=== PATIENT | female | born 1970 | race Caucasian/White ===

== ENCOUNTER 2017-10-27 10:33 | Inpatient (IN) | payer SELFPAY ==
--- NOTE | 2017-10-27 11:07 | ER Document Report ---
ED Medical Screen (RME) - General Chief Complaint: Headache Stated Complaint: HEADACHE Time Seen by Provider: 10/27/17 11:00 Notes: RAPID MEDICAL EVALUATION DISCLOSURE I have seen this patient as part of a Rapid Medical Evaluation and, if applicable, placed any initially appropriate orders. The patient will be seen and fully evaluated, including a full history and physical exam, by a provider ( in Main ED or Fast Track) when a room becomes available. 47-year-old female PMH migraines once or twice monthly (on propranolol) here with complaints of headache that started 2 hours ago with associated nausea vomiting slightly blurry vision right facial droop right upper/lower extremity numbness/weakness. She states that these neurological deficits are new and she has never gotten them before with her headaches. She took her migraine medication, propranolol, this morning. She does not take any blood thinners. She denies any head trauma. EXAM Very slight right facial droop Right upper extremity 4/5 strength with sensory deficit Right lower extremity 4+/5 strength with sensory deficit TRAVEL OUTSIDE OF THE [place] IN LAST 30 DAYS: No - Related Data Allergies/Adverse Reactions: codeine [Codeine] Allergy (Severe, Verified 10/27/17 10:40) Past Medical History Pulmonary Medical History: Reports: Hx Asthma Neurological Medical History: Reports: Hx Migraine - Immunizations Immunizations up to date: Yes Hx Diphtheria, Pertussis, Tetanus Vaccination: Yes Physical Exam - Vital signs Vitals: Temp Pulse Resp BP Pulse Ox 99.2 F 56 L 16 130/94 H 99 10/27/17 10:49 10/27/17 10:49 10/27/17 10:49 10/27/17 10:49 10/27/17 10:49 Course - Vital Signs Vital signs: Temp Pulse Resp BP Pulse Ox 99.2 F 56 L 16 130/94 H 99 10/27/17 10:49 10/27/17 10:49 10/27/17 10:49 10/27/17 10:49 10/27/17 10:49
--- NOTE | 2017-10-27 11:28 | RADIOLOGY REPORT (SQ) ---
EXAM DESCRIPTION: CT HEAD WITHOUT COMPLETED DATE/TIME: 10/27/2017 11:18 am REASON FOR STUDY: Headadche COMPARISON: None. TECHNIQUE: Axial images acquired through the brain without intravenous contrast. Images reviewed wi th bone, brain and subdural windows. Additional sagittal and coronal reconstructions were generated. Images stored on PACS. All CT scanners at this facility use dose modulation, iterative reconstruction, and/or weight based d osing when appropriate to reduce radiation dose to as low as reasonably achievable (ALARA). [facility]: Dose Right [facility]: CareDose [facility]: Dose Right [facility]: Teradose 4D [facility]: [employer] RADIATION DOSE: 53.1 mGy. LIMITATIONS: None. FINDINGS: VENTRICLES: Normal size and contour. CEREBRUM: No masses. No hemorrhage. No midline shift. No evidence for acute infarction. Normal gra y/white matter differentiation. No areas of low density in the white matter. CEREBELLUM: No masses. No hemorrhage. No alteration of density. No evidence for acute infarction. EXTRAAXIAL SPACES: No fluid collections. No masses. ORBITS AND GLOBE: No intra- or extraconal masses. Normal contour of globe without masses. CALVARIUM: No fracture. PARANASAL SINUSES: No fluid or mucosal thickening. SOFT TISSUES: No mass or hematoma. OTHER: No other significant finding. IMPRESSION: NORMAL BRAIN CT WITHOUT CONTRAST. EVIDENCE OF ACUTE STROKE: NO. COMMENT: Pertinent findings on the imaging study reported as a CRITICAL RESULT to Leighton MORELOS at11:12 on 10/27/2017. Category of Critical Result: CT code stroke Quality ID # [id number]: Final reports with documentation of one or more dose reduction techniques (e.g., Au tomated exposure control, adjustment of the mA and/or kV according to patient size, use of iterative reconstruction technique) TECHNICAL DOCUMENTATION: JOB ID: [id number] [email or web address]- All Rights Reserved Reading location - IP/workstation name: [email or web address]
--- NOTE | 2017-10-27 11:29 | RADIOLOGY REPORT (SQ) ---
EXAM DESCRIPTION: CHEST SINGLE VIEW COMPLETED DATE/TIME: 10/27/2017 11:20 am REASON FOR STUDY: Headadche COMPARISON: None. EXAM PARAMETERS: NUMBER OF VIEWS: One view. TECHNIQUE: Single frontal radiographic view of the chest acquired. RADIATION DOSE: NA LIMITATIONS: None. FINDINGS: LUNGS AND PLEURA: No opacities, masses or pneumothorax. No pleural effusion. MEDIASTINUM AND HILAR STRUCTURES: No masses. Contour normal. HEART AND VASCULAR STRUCTURES: Heart normal in size. Normal vasculature. BONES: No acute findings. HARDWARE: None in the chest. OTHER: No other significant finding. IMPRESSION: NO ACUTE RADIOGRAPHIC FINDING IN THE CHEST. TECHNICAL DOCUMENTATION: JOB ID: [id number] [employer]- All Rights Reserved Reading location - IP/workstation name: [email or web address]
--- NOTE | 2017-10-27 11:34 | ER Document Report ---
ED General - General Chief Complaint: Headache Stated Complaint: HEADACHE Time Seen by Provider: 10/27/17 11:00 Mode of Arrival: Ambulatory Information source: Patient TRAVEL OUTSIDE OF THE [place] IN LAST 30 DAYS: No - HPI Notes: 47-year-old female with a past medical history of migraines which she takes propranolol for presents for complaints of a sudden onset headache with nausea and vomiting, blurred vision, right facial droop with lower extremity numbness and tingling in the right which lasted for about 45 minutes. She reports the symptoms are new is that she has never had numbness or tingling, right facial droop with any of her previous migraines. patient does not follow with a neurologist, she follows with her primary care provider, Katherin Villanueva [facility]. Patient states she was helping for the clients food in the fridge when the symptoms started. Patient does not smoke, denies drinking. Has not taken a baby aspirin. Denies any recent illnesses or fevers. Denies any trauma. Patient states she usually keeps her migraines under control with her daily medication. Patient did take her propranolol this morning. Denies fevers, chills, chest pain,palpitations, shortness of breath, dyspnea, nausea, vomiting, diarrhea, abdominal pain, hematuria, speech changes, LH, dizziness, syncope, headaches, wheezing, ST, URI, neck pain, weakness, bowel or bladder dysfunction, saddle anesthesia, numbness or tingling in bilateral upper or lower extremities equally, muscle paralysis, weakness in bilateral upper or lower extremities equally or rash. Denies IV drug use. - Related Data Allergies/Adverse Reactions: codeine [Codeine] Allergy (Severe, Verified 10/27/17 10:40) Past Medical History - General Information source: Patient - Social History Smoking Status: Never Smoker Family History: Reviewed & Not Pertinent Patient has suicidal ideation: No Patient has homicidal ideation: No Pulmonary Medical History: Reports: Hx Asthma Neurological Medical History: Reports: Hx Migraine Renal/ Medical History: Denies: Hx Peritoneal Dialysis - Immunizations Immunizations up to date: Yes Hx Diphtheria, Pertussis, Tetanus Vaccination: Yes Review of Systems - Review of Systems Constitutional: See HPI EENT: No symptoms reported Cardiovascular: No symptoms reported Respiratory: No symptoms reported Gastrointestinal: No symptoms reported Genitourinary: No symptoms reported Female Genitourinary: No symptoms reported Musculoskeletal: No symptoms reported Skin: No symptoms reported Hematologic/Lymphatic: No symptoms reported Neurological/Psychological: See HPI Physical Exam - Vital signs Vitals: Temp Pulse Resp BP Pulse Ox 99.2 F 56 L 16 130/94 H 99 10/27/17 10:49 10/27/17 10:49 10/27/17 10:49 10/27/17 10:49 10/27/17 10:49 - Notes Notes: PHYSICAL EXAMINATION: GENERAL: Well-appearing, well-nourished and in no acute distress. HEAD: Atraumatic, normocephalic. EYES: Pupils equal round and reactive to light, extraocular movements intact, conjunctiva are normal. ENT: Nares patent, oropharynx clear without exudates. Moist mucous membranes. NECK: Normal range of motion, supple without lymphadenopathy LUNGS: Breath sounds clear to auscultation bilaterally and equal. No wheezes rales or rhonchi. HEART: Regular rate and rhythm without murmurs ABDOMEN: Soft, nontender, nondistended abdomen. No guarding, no rebound. No masses appreciated. Female : deferred Musculoskeletal: Normal range of motion, no pitting or edema. No cyanosis. NEUROLOGICAL: Cranial nerves grossly intact. Normal speech, normal gait. Normal sensory, motor exams. PERRLA, EOMI. Full motor and sensory function throughout. Seamless Tube Drawer left greater than right in bilateral upper extremities. right 4/ 5 with strength, left 5/ 5 strength in bilateral upper extremities. tongue midline. No pronator drift. No ataxia. Neck with APROM. Raises eyebrows. Strength is 5 out of 5 in bilateral upper and lower extremities equally.Speaks in full sentences. No weakness on one side. Romberg gait steady able to walk straight line. Able to recall 5 objects. PSYCH: Normal mood, normal affect. SKIN: Warm, Dry, normal turgor, no rashes or lesions noted. Course - Re-evaluation Re-evalutation: 10/27/17 12:49 47-year-old female who is afebrile, vitals stable and in no distress presents for sudden onset of right-sided numbness and tingling with associated blurred vision, nausea and vomiting with the sudden headache approximately 2 hours ago, states symptoms resolved about [address] of head negative for any acute anterior cerebral abnormalities such as stroke, mass or lesion, cerebral swelling, etc. Chest x-ray negative for any acute findings. CBC negative for any leukocytosis or anemia. Coagulation studies normal. CMP negative besides slight hypernatremia this is likely due to dehydration. Cardiac enzymes unremarkable. EKG shows sinus bradycardia. On examination patient has right sided weakness in bilateral upper and lower extremities, she states this is a new symptom that she has never had this before. Denies history of heart attack , stroke or diabetes. States father in a car accident, did not know his medical history. Patient does not know her mother's history. Patient denies any cardiac history. Does not take daily baby aspirin. Patient affirms she is not having any chest pain or shortness of breath. Start migraine cocktail as well as pursue a MRI of the brain. Urinalysis shows patient has a UTI, will treat with Macrobid. MRI brain negative for any acute findings. On reevaluation patient still is having right-sided weakness. Clinical findings, pertinent laboratory and diagnostic findings discussed with Dr. Sharp, will keep patient for observation due to having a TIA at 1630. All questions and concerns answered by this provider with patient and family. - Vital Signs Vital signs: Temp Pulse Resp BP Pulse Ox 99.2 F 57 L 18 130/94 H 99 10/27/17 10:49 10/27/17 11:53 10/27/17 11:53 10/27/17 11:53 10/27/17 11:54 - Laboratory Result Diagrams: 10/27/17 11:25 10/27/17 11:25 Laboratory results interpreted by co: 10/27/17 10/27/17 11:25 12:30 Sodium 145.2 H Neonat Total Bilirubin 0.0 L Urine Blood LARGE H Ur Leukocyte Esterase MODERATE H - EKG Interpretation by Wy EKG shows normal: Sinus rhythm Rate: Bradycardia - Nonspecific ST segment changes, no STEMI. Heart rate 58 bpm. Discharge - Discharge Clinical Impression: UTI (urinary tract infection) Qualifiers: Urinary tract infection type: acute cystitis Hematuria presence: with hematuria Qualified Code(s): N30.01 - Acute cystitis with hematuria TIA (transient ischemic attack) Qualifiers: Transient cerebral ischemia type: unspecified Qualified Code(s): G45.9 - Transient cerebral ischemic attack, unspecified Condition: Good Disposition: ADMITTED OBSERVATION Admitting Provider: Hospitalist - Dr. Price sharp Unit Admitted: Medical Floor
[2017-10-27 11:41] LABS: ABSOLUTE BASOPHILS # (AUTO) 0.1 10^3/uL (0.0-0.2); ABSOLUTE EOSINOPHILS # (AUTO) 0.4 10^3/uL (0.0-0.6); ABSOLUTE MONOCYTES (AUTO) 0.6 10^3/uL (0.1-1.4); ABSOLUTE NEUT (AUTO) 4.2 10^3/uL (1.7-8.2); HEMATOCRIT 37.9 % (36.0-47.0); HEMOGLOBIN 12.8 g/dL (12.0-15.5); LYMPHOCYTES % (AUTO) 27.3 % (13-45); MEAN CORPUSCULAR HEMOGLOBIN 29.6 pg (27.0-33.4); MEAN CORPUSCULAR HGB CONC 33.9 g/dL (32.0-36.0); MEAN CORPUSCULAR VOLUME 87 fl (80-97); MONOCYTES % (AUTO) 8.2 % (3-13); PLATELET COUNT 336 10^3/uL (150-450); RED BLOOD COUNT 4.35 10^6/uL (3.72-5.28); SEGMENTED NEUTROPHILS % (AUTO) 58.5 % (42-78); TOTAL CELLS COUNTED % (AUTO) 100 %; WHITE BLOOD COUNT 7.2 10^3/uL (4.0-10.5)
[2017-10-27 11:45] LABS: INTERNATIONAL RATION (INR) 0.92; PROTHROMBIN TIME 12.8 SEC (11.4-15.4)
[2017-10-27 11:46] LABS: PARTIAL THROMBOPLASTIN TIME 34.1 SEC (23.5-35.8)
[2017-10-27 11:59] LABS: ALANINE AMINOTRANSFERASE 30 U/L (9-52); ALBUMIN 4.4 g/dL (3.5-5.0); ALKALINE PHOSPHATASE 62 U/L (38-126); ANION GAP 14 (5-19); ASPARTATE AMINO TRANSFERASE 18 U/L (14-36); BILIRUBIN,DIRECT 0.2 mg/dL (0.0-0.4); BILIRUBIN,TOTAL 0.2 mg/dL (0.2-1.3); BLOOD UREA NITROGEN 8 mg/dL (7-20); CALCIUM 9.8 mg/dL (8.4-10.2); CARBON DIOXIDE 26 mmol/L (22-30); CHLORIDE 105 mmol/L (98-107); CREATINE KINASE 44 U/L (30-135); GLUCOSE 85 mg/dL (75-110); POTASSIUM 4.1 mmol/L (3.6-5.0); SODIUM 145.2 mmol/L (137-145); TOTAL PROTEIN 7.5 g/dL (6.3-8.2)
[2017-10-27 12:12] LABS: CREATINE KINASE MB < 0.22 ng/mL (<4.55); TROPONIN I < 0.012 ng/mL
[2017-10-27] MEDS ORDERED: ASPIRIN 81 MG TABLET, CHEWABLE PO ONE (12:43)
[2017-10-27] MEDS ORDERED: NORMAL SALINE 1000 ML 1,000 ML IV ONE (12:43)
[2017-10-27] MEDS ORDERED: KETOROLAC TROMETHAMINE INJ/PF 30 MG/1 ML SDV IV ONE (12:44)
[2017-10-27] MEDS ORDERED: PROCHLORPERAZINE EDISYLATE INJ 10 MG/2 ML VIAL IV ONE (12:44)
--- NOTE | 2017-10-27 13:21 | EKG REPORT ---
SEVERITY:- NORMAL ECG - SINUS RHYTHM : Confirmed by: Thang Arroyo MD 27-Oct-2017 13:21:08
[2017-10-27 13:50] LABS: APPEARANCE,URINE SLIGHTLY-CLOUDY; BILIRUBIN,URINE NEGATIVE (NEGATIVE); COLOR,URINE YELLOW; GLUCOSE, URINE NEGATIVE (NEGATIVE); KETONES,URINE NEGATIVE (NEGATIVE); LEUKOCYTE ESTERASE,URINE MODERATE (NEGATIVE); NITRITE,URINE NEGATIVE (NEGATIVE); PROTEIN,URINE NEGATIVE (NEGATIVE); URINE SPECIFIC GRAVITY 1.005; UROBILINOGEN,URINE NEGATIVE mg/dL (<2.0)
[2017-10-27] MEDS ORDERED: NITROFURANTOIN MONOHYD/M-CRYST 100 MG CAPSULE PO ONE (14:03)
--- NOTE | 2017-10-27 16:08 | RADIOLOGY REPORT (SQ) ---
EXAM DESCRIPTION: MRI HEAD WITHOUT COMPLETED DATE/TIME: 10/27/2017 3:52 pm REASON FOR STUDY: sudden onset n/t on right w/ AGUILERA. +weakness COMPARISON: CT brain 10/28/2017 TECHNIQUE: Multiplanar imaging includes non-contrasted T1, T2, FLAIR, and diffusion with ADC map seq uences. Images stored on PACS. LIMITATIONS: None. FINDINGS: ANATOMY: No developmental anomalies. Normal vascular flow voids. Pituitary fossa normal. CSF SPACES: Normal in size and contour. No hemorrhage. CEREBRUM: Sulci and gyri normal in size and contour. Normal white matter signal on FLAIR imaging. No evidence of hemorrhage, mass, or extraaxial fluid collection. POSTERIOR FOSSA: No signal alteration. No hemorrhage. No edema, masses or mass effect. Internal ashly tory canals, cerebello-pontine angles, mastoids normal. DIFFUSION IMAGING: Negative for acute or sub-acute infarction. ORBITS: No masses. Globes normal. PARANASAL SINUSES: No fluid levels. Mucosa normal. OTHER: No other significant finding. IMPRESSION: Unremarkable study EVIDENCE OF ACUTE STROKE: NO. TECHNICAL DOCUMENTATION: JOB ID: [id number] [employer]- All Rights Reserved Reading location - IP/workstation name: [email or web address]
[2017-10-27] MEDS ORDERED: NORMAL SALINE 1000 ML 1,000 ML IV PRN (17:34)
[2017-10-27] MEDS ORDERED: ONDANSETRON HCL INJ/PF 4 MG/2 ML SDV IV PRN (17:39)
[2017-10-27] MEDS ORDERED: ZOLPIDEM TARTRATE 5 MG TABLET PO PRN (17:39)
--- NOTE | 2017-10-27 18:07 | PDOC H&P ---
History of Present Illness Admission Date/PCP: 10/27/17 16:41 Patient complains of: Right sided numbness and tingling History of Present Illness: ERIC ARDON is a 47 year old female Past Medical History Pulmonary Medical History: Reports: Asthma Neurological Medical History: Reports: Migraine Social History Information Source: Patient Smoking Status: Never Smoker Frequency of Alcohol Use: None Drugs: None Hx Prescription Drug Abuse: No - Advance Directive Resuscitation Status: Full Code Family History Family History: Reviewed & Not Pertinent Parental Family History Reviewed: Yes - Cancer, HTN Children Family History Reviewed: NA Sibling(s) Family History Reviewed.: Unknown Medication/Allergy Allergies/Adverse Reactions: codeine [Codeine] Allergy (Severe, Verified 10/27/17 10:40) Review of Systems All systems: reviewed and no additional remarkable complaints except as stated Physical Exam Vital Signs: Temp Pulse Resp BP Pulse Ox 99.2 F 57 L 18 130/94 H 99 10/27/17 10:49 10/27/17 11:53 10/27/17 11:53 10/27/17 11:53 10/27/17 11:54 General appearance: PRESENT: no acute distress, well-developed, well-nourished Head exam: PRESENT: atraumatic, normocephalic Ear exam: PRESENT: normal external ear exam Mouth exam: PRESENT: dry mucosa Neck exam: ABSENT: carotid bruit, JVD, lymphadenopathy, thyromegaly Respiratory exam: PRESENT: clear to auscultation baldo. ABSENT: rales, rhonchi, wheezes Cardiovascular exam: PRESENT: RRR. ABSENT: diastolic murmur, rubs, systolic murmur GI/Abdominal exam: PRESENT: normal bowel sounds, soft. ABSENT: distended, guarding, mass, organolmegaly, rebound, tenderness Rectal exam: PRESENT: deferred Extremities exam: PRESENT: full ROM. ABSENT: calf tenderness, clubbing, pedal edema Musculoskeletal exam: PRESENT: ambulatory Neurological exam: PRESENT: alert, awake, oriented to person, oriented to place , oriented to time, oriented to situation, motor sensory deficit - RUE, other - strength 3/5 RUE Skin exam: PRESENT: dry, intact, warm. ABSENT: cyanosis, rash Results Laboratory Results: Laboratory 10/27/17 10/27/17 10/27/17 11:25 11:25 11:25 WBC 7.2 RBC 4.35 Hgb 12.8 Hct 37.9 MCV 87 MCH 29.6 MCHC 33.9 RDW 14.0 Plt Count 336 Seg Neutrophils % 58.5 Lymphocytes % 27.3 Monocytes % 8.2 Eosinophils % 5.0 Basophils % 1.0 Absolute Neutrophils 4.2 Absolute Lymphocytes 2.0 Absolute Monocytes 0.6 Absolute Eosinophils 0.4 Absolute Basophils 0.1 PT 12.8 INR 0.92 APTT 34.1 Sodium 145.2 H Potassium 4.1 Chloride 105 Carbon Dioxide 26 Anion Gap 14 BUN 8 Creatinine 0.55 Est GFR ( Amer) > 60 Est GFR (Non-Af Amer) > 60 Glucose 85 Calcium 9.8 Total Bilirubin 0.2 Direct Bilirubin 0.2 Neonat Total Bilirubin 0.0 L Neonat Direct Bilirubin 0.0 Neonat Indirect Bili 0.0 AST 18 ALT 30 Alkaline Phosphatase 62 Creatine Kinase 44 CK-MB (CK-2) Troponin I Total Protein 7.5 Albumin 4.4 Urine Color Urine Appearance Urine pH Ur Specific [place] Urine Protein Urine Glucose (UA) Urine Ketones Urine Blood Urine Nitrite Urine Bilirubin Urine Urobilinogen Ur Leukocyte Esterase Urine WBC (Auto) Urine RBC (Auto) Urine Bacteria (Auto) Squamous Epi Cells Auto Urine Mucus (Auto) Urine Ascorbic Acid 10/27/17 10/27/17 11:25 12:30 WBC RBC Hgb Hct MCV MCH MCHC RDW Plt Count Seg Neutrophils % Lymphocytes % Monocytes % Eosinophils % Basophils % Absolute Neutrophils Absolute Lymphocytes Absolute Monocytes Absolute Eosinophils Absolute Basophils PT INR APTT Sodium Potassium Chloride Carbon Dioxide Anion Gap BUN Creatinine Est GFR ( Amer) Est GFR (Non-Af Amer) Glucose Calcium Total Bilirubin Direct Bilirubin Neonat Total Bilirubin Neonat Direct Bilirubin Neonat Indirect Bili AST ALT Alkaline Phosphatase Creatine Kinase CK-MB (CK-2) < 0.22 Troponin I < 0.012 Total Protein Albumin Urine Color YELLOW Urine Appearance SLIGHTLY-CLOUDY Urine pH 6.0 Ur Specific [place] 1.005 Urine Protein NEGATIVE Urine Glucose (UA) NEGATIVE Urine Ketones NEGATIVE Urine Blood LARGE H Urine Nitrite NEGATIVE Urine Bilirubin NEGATIVE Urine Urobilinogen NEGATIVE Ur Leukocyte Esterase MODERATE H Urine WBC (Auto) 28 Urine RBC (Auto) 5 Urine Bacteria (Auto) TRACE Squamous Epi Cells Auto 5 Urine Mucus (Auto) RARE Urine Ascorbic Acid NEGATIVE Impressions: Chest X-Ray 10/27/17 11:07 IMPRESSION: NO ACUTE RADIOGRAPHIC FINDING IN THE CHEST. Head CT 10/27/17 11:07 IMPRESSION: NORMAL BRAIN CT WITHOUT CONTRAST. EVIDENCE OF ACUTE STROKE: NO. Head MRI 10/27/17 12:40 IMPRESSION: Unremarkable study EVIDENCE OF ACUTE STROKE: NO. Assessment & Plan - Diagnosis (1) TIA (transient ischemic attack) Qualifiers: Transient cerebral ischemia type: unspecified Qualified Code(s): G45.9 - Transient cerebral ischemic attack, unspecified Is this a current diagnosis for this admission?: Yes Plan: Obtain Echo, and carotid doppler studies (2) UTI (urinary tract infection) Qualifiers: Urinary tract infection type: acute cystitis Hematuria presence: with hematuria Qualified Code(s): N30.01 - Acute cystitis with hematuria Is this a current diagnosis for this admission?: Yes Plan: Will continue Macrobid - Time Time Spent: 30 to 50 Minutes Medications reviewed and adjusted accordingly: Yes Anticipated discharge: Home Within: within 24 hours - Inpatient Certification Based on my medical assessment, after consideration of the patient's comorbidities, presenting symptoms, or acuity I expect that the services needed warrant INPATIENT care.: Yes Medical Necessity: Need Close Monitoring Due to Risk of Patient Decompensation, Risk of Complication if Not Cared For in Hospital
[2017-10-27] MEDS ORDERED: ENOXAPARIN SODIUM INJ 40 MG/0.4 ML DISP.SYRIN SUBCUT ONE (19:00)
[2017-10-27] MEDS: NITROFURANTOIN MONOHYD/M-CRYST 100 MG CAPSULE PO SCH (20:44)
[2017-10-28] MEDS: NITROFURANTOIN MONOHYD/M-CRYST 100 MG CAPSULE PO SCH ×2 (09:21→17:05)
[2017-10-28] MEDS ORDERED: ENOXAPARIN SODIUM INJ 40 MG/0.4 ML DISP.SYRIN SUBCUT SCH ×2 (10:00)
[2017-10-28] MEDS ORDERED: ASPIRIN 81 MG TABLET, ENT COATED PO SCH (10:00)
[2017-10-28] MEDS ORDERED: ASPIRIN 325 MG TABLET, ENT COATED PO SCH (10:00)
[2017-10-28] MEDS: ACETAMINOPHEN 325 MG TABLET PO PRN ×2 (12:24→17:05)
--- NOTE | 2017-10-28 14:03 | RADIOLOGY REPORT (SQ) ---
EXAM DESCRIPTION: CAROTID DOPPLER COMPLETED DATE/TIME: 10/28/2017 1:10 pm REASON FOR STUDY: TIA COMPARISON: None. TECHNIQUE: Grayscale ultrasound, Doppler velocity and spectra, and color Doppler images acquired of the extra-cranial carotid and vertebral arteries. Images stored on PACS. LIMITATIONS: None. FINDINGS: RIGHT CAROTID CCA Velocities: Within normal limits. ICA Velocities Peak systolic 0.73 m/s. End diastolic 0.32 m/s. Proximal ICA/CCA peak systolic ratio 1.6. Spectra normal. No significant plaque. LEFT CAROTID CCA Velocities: Within normal limits. ICA Velocities Peak systolic 0.76 m/s. End diastolic 0.27 m/s. Proximal ICA/CCA peak systolic ratio 1.6. Spectra normal. No significant plaque. VERTEBRAL ARTERIES: Antegrade flow. Normal waveforms. SUBCLAVIAN ARTERIES: Not imaged. OTHER: No other significant finding. IMPRESSION: NO HEMODYNAMICALLY SIGNIFICANT STENOSIS. COMMENT: Quality ID #[id number]: Velocity criteria are extrapolated from the diameter data as defined by t he Society of Radiologists in Ultrasound Consensus Conference. Radiology 2003: 229; 340-346. TECHNICAL DOCUMENTATION: JOB ID: [id number] [employer]- All Rights Reserved Reading location - IP/workstation name: [email or web address]
--- NOTE | 2017-10-28 16:21 | PDOC DISCHARGE SUMMARY ---
General - Admit/Disc Date/PCP Admission Date/Primary Care Provider: 10/27/17 16:41 Discharge Date: 10/28/17 - Discharge Diagnosis (1) TIA (transient ischemic attack) Is this a current diagnosis for this admission?: Yes (2) UTI (urinary tract infection) Is this a current diagnosis for this admission?: Yes - Additional Information Resuscitation Status: Full Code Discharge Diet: Regular Discharge Activity: Activity As Tolerated Prescriptions: Nitrofurantoin Monohyd/M-Cryst [Macrobid 100 mg Capsule] 100 mg PO BID #10 capsule Home Medications: Propranolol HCl [Inderal 20 mg Tablet] 20 mg PO Q12 10/27/17 Aspirin [Ecotrin 81 mg EC Tablet] 81 mg PO DAILY tabec 10/28/17 Nitrofurantoin Monohyd/M-Cryst [Macrobid 100 mg Capsule] 100 mg PO BID #10 capsule 10/28/17 History of Present Illness History of Present Illness: ERIC ARDON is a 47 year old female This patient presents with sudden onset of right-sided numbness and tingling restarted to about 9 AM which was at work today. She was noted to have some mild facial droop while in the emergency room. She also complained of nausea vomiting as well as a sudden headache and blurred vision. The had a CT scan of the brain as well as MRI done in the emergency room with no significant findings. She gives a prior history of migraine headaches but otherwise denies any other significant medical history. She denies any such prior symptoms before. She is has been evaluated and monitored in the emergency room over the last few hours with no progression of symptoms and without resolution of some of her above-mentioned symptoms. State that the symptoms is different from her migraine headaches Hospital Course Hospital Course: Patient admitted with complaints of numbness and tingling. It is unclear what the etiology of this were. She had a full workup done including CT scan of the brain as well as MRI and how to Doppler studies which were all negative for evidence of acute stroke. A two-dimensional echocardiogram result was reviewed with Dr. Perry with no significant findings however will have patient follow up with him in 2 weeks to r/o occult cardiac etiologies.. Patient was monitored on telemetry floor with no progression of symptoms and in fact by this morning all her subjective symptoms were a resolved. Her blood pressure was controlled throughout her hospital stay. She does have a history of migraine and it is possible that this is a variant of a migraine headache. Physical Exam Vital Signs: Temp Pulse Resp BP Pulse Ox 98.4 F 74 18 117/76 100 10/28/17 11:36 10/28/17 11:36 10/28/17 11:36 10/28/17 11:36 10/28/17 11:36 Intake & Output 10/27/17 10/28/17 10/29/17 06:59 06:59 06:59 Intake Total 885 200 Balance 885 200 Weight 70.7 kg General appearance: PRESENT: no acute distress, well-developed, well-nourished Head exam: PRESENT: atraumatic, normocephalic Eye exam: PRESENT: conjunctiva pink, EOMI, PERRLA. ABSENT: scleral icterus Ear exam: PRESENT: normal external ear exam Mouth exam: PRESENT: moist, tongue midline Neck exam: ABSENT: carotid bruit, JVD, lymphadenopathy, thyromegaly Respiratory exam: PRESENT: clear to auscultation baldo. ABSENT: rales, rhonchi, wheezes Cardiovascular exam: PRESENT: RRR. ABSENT: diastolic murmur, rubs, systolic murmur Pulses: PRESENT: normal dorsalis pedis pul Vascular exam: PRESENT: normal capillary refill GI/Abdominal exam: PRESENT: normal bowel sounds, soft. ABSENT: distended, guarding, mass, organolmegaly, rebound, tenderness Rectal exam: PRESENT: deferred Extremities exam: PRESENT: full ROM. ABSENT: calf tenderness, clubbing, pedal edema Neurological exam: PRESENT: alert, awake, oriented to person, oriented to place , oriented to time, oriented to situation, CN II-XII grossly intact. ABSENT: motor sensory deficit Psychiatric exam: PRESENT: appropriate affect, normal mood. ABSENT: homicidal ideation, suicidal ideation Skin exam: PRESENT: dry, intact, warm. ABSENT: cyanosis, rash Results Laboratory Results: Laboratory WBC 7.2 10^3/uL (4.0-10.5) 10/27/17 11:25 RBC 4.35 10^6/uL (3.72-5.28) 10/27/17 11:25 Hgb 12.8 g/dL (12.0-15.5) 10/27/17 11:25 Hct 37.9 % (36.0-47.0) 10/27/17 11:25 MCV 87 fl (80-97) 10/27/17 11:25 MCH 29.6 pg (27.0-33.4) 10/27/17 11:25 MCHC 33.9 g/dL (32.0-36.0) 10/27/17 11:25 RDW 14.0 % (11.5-14.0) 10/27/17 11:25 Plt Count 336 10^3/uL (150-450) 10/27/17 11:25 Seg Neutrophils % 58.5 % (42-78) 10/27/17 11:25 Lymphocytes % 27.3 % (13-45) 10/27/17 11:25 Monocytes % 8.2 % (3-13) 10/27/17 11:25 Eosinophils % 5.0 % (0-6) 10/27/17 11:25 Basophils % 1.0 % (0-2) 10/27/17 11:25 Absolute Neutrophils 4.2 10^3/uL (1.7-8.2) 10/27/17 11:25 Absolute Lymphocytes 2.0 10^3/uL (0.5-4.7) 10/27/17 11:25 Absolute Monocytes 0.6 10^3/uL (0.1-1.4) 10/27/17 11:25 Absolute Eosinophils 0.4 10^3/uL (0.0-0.6) 10/27/17 11:25 Absolute Basophils 0.1 10^3/uL (0.0-0.2) 10/27/17 11:25 Sodium 145.2 mmol/L (137-145) H 10/27/17 11:25 Potassium 4.1 mmol/L (3.6-5.0) 10/27/17 11:25 Chloride 105 mmol/L (98-107) 10/27/17 11:25 Carbon Dioxide 26 mmol/L (22-30) 10/27/17 11:25 Anion Gap 14 (5-19) 10/27/17 11:25 BUN 8 mg/dL (7-20) 10/27/17 11:25 Creatinine 0.55 mg/dL (0.52-1.25) 10/27/17 11:25 Est GFR ( Amer) > 60 (>60) 10/27/17 11:25 Est GFR (Non-Af Amer) > 60 (>60) 10/27/17 11:25 Glucose 85 mg/dL (75-110) 10/27/17 11:25 Calcium 9.8 mg/dL (8.4-10.2) 10/27/17 11:25 Total Bilirubin 0.2 mg/dL (0.2-1.3) 10/27/17 11:25 Direct Bilirubin 0.2 mg/dL (0.0-0.4) 10/27/17 11:25 Neonat Total Bilirubin 0.0 mg/dL (0.1-1.1) L 10/27/17 11:25 Neonat Direct Bilirubin 0.0 mg/dL (0.0-0.3) 10/27/17 11:25 Neonat Indirect Bili 0.0 mg/dL (0.0-1.1) 10/27/17 11:25 AST 18 U/L (14-36) 10/27/17 11:25 ALT 30 U/L (9-52) 10/27/17 11:25 Alkaline Phosphatase 62 U/L (38-126) 10/27/17 11:25 Creatine Kinase 44 U/L (30-135) 10/27/17 11:25 CK-MB (CK-2) < 0.22 ng/mL (<4.55) 10/27/17 11:25 Troponin I < 0.012 ng/mL 10/27/17 11:25 Total Protein 7.5 g/dL (6.3-8.2) 10/27/17 11:25 Albumin 4.4 g/dL (3.5-5.0) 10/27/17 11:25 Urine Color YELLOW 10/27/17 12:30 Urine Appearance SLIGHTLY-CLOUDY 10/27/17 12:30 Urine pH 6.0 (5.0-9.0) 10/27/17 12:30 Ur Specific [place] 1.005 10/27/17 12:30 Urine Protein NEGATIVE mg/dL (NEGATIVE) 10/27/17 12:30 Urine Glucose (UA) NEGATIVE mg/dL (NEGATIVE) 10/27/17 12:30 Urine Ketones NEGATIVE mg/dL (NEGATIVE) 10/27/17 12:30 Urine Blood LARGE (NEGATIVE) H 10/27/17 12:30 Urine Nitrite NEGATIVE (NEGATIVE) 10/27/17 12:30 Urine Bilirubin NEGATIVE (NEGATIVE) 10/27/17 12:30 Urine Urobilinogen NEGATIVE mg/dL (<2.0) 10/27/17 12:30 Ur Leukocyte Esterase MODERATE (NEGATIVE) H 10/27/17 12:30 Urine WBC (Auto) 28 /HPF 10/27/17 12:30 Urine RBC (Auto) 5 /HPF 10/27/17 12:30 Urine Bacteria (Auto) TRACE /HPF 10/27/17 12:30 Squamous Epi Cells Auto 5 /HPF 10/27/17 12:30 Urine Mucus (Auto) RARE /LPF 10/27/17 12:30 Urine Ascorbic Acid NEGATIVE (NEGATIVE) 10/27/17 12:30 Impressions: Chest X-Ray 10/27/17 11:07 IMPRESSION: NO ACUTE RADIOGRAPHIC FINDING IN THE CHEST. Head CT 10/27/17 11:07 IMPRESSION: NORMAL BRAIN CT WITHOUT CONTRAST. EVIDENCE OF ACUTE STROKE: NO. Head MRI 10/27/17 12:40 IMPRESSION: Unremarkable study EVIDENCE OF ACUTE STROKE: NO. Carotid Doppler Study 10/28/17 00:00 IMPRESSION: NO HEMODYNAMICALLY SIGNIFICANT STENOSIS. Qualifiers - * PATIENT BEING DISCHARGED WITH ANY OF THE FOLLOWING DIAGNOSIS: No Plan Time Spent: Less than 30 Minutes
[2017-10-28 17:16] VITALS: BP 131/76
--- NOTE | 2017-10-28 17:16 | XCELERA REPORT ---
[address] [address] Transthoracic Echocardiogram Report Name: ERIC ARDON Age: 47 yrs Gender: Female : 1970 Patient Status: Inpatient Patient Location: [address] [place] [address] Study Date: 10/28/2017 09:18 AM Height: 59 in Weight: 154 lb BSA: 1.7 m2 Procedure: A complete two-dimensional transthoracic echocardiogram was performed (2D, M-mode, spectral and color flow Doppler). The study was technically adequate with some images being suboptimal in quality. Reason For Study: ?TIA Ordering Physician: MARU SUE Performed By: Mahnaz Condon Interpretation Summary The left ventricular ejection fraction is within normal limits. There is borderline concentric left ventricular hypertrophy. The left ventricle is grossly normal size. Doppler measurements suggest impaired left ventricular relaxation, which is associated with grade I/IV or mild diastolic dysfunction Wall motion cannot be accurately commented on, but no definite regional wall motion abnormalities noted. The right ventricular systolic function is normal. There is no mitral valve stenosis. There is a trace amount of mitral regurgitation There is no aortic valve stenosis No aortic regurgitation is present. There is no tricuspid stenosis. There is a trace or physiologic amount of tricuspid regurgitation The aortic root is not well visualized but is probably normal size. The inferior vena cava appeared normal and decreased > 50% with respiration (RAP 5-10 mmHg) There is no pericardial effusion. MMode/2D Measurements & Calculations RVDd: 2.3 cm LVIDd: 4.0 cm FS: 41.0 % Ao root diam: 2.2 cm IVSd: 1.00 cm LVIDs: 2.4 cm EDV(Teich): 70.3 ml LVPWd: 0.99 cm ESV(Teich): 19.5 ml Ao root area: 4.0 cm2 EF(Teich): 72.3 % Doppler Measurements & Calculations MV E max snow: MV dec slope: Ao V2 max: LV V1 max P.2 cm/sec 165.9 cm/sec 5.4 mmHg MV A max snow: 324.2 cm/sec2 Ao max PG: LV V1 max: 59.8 cm/sec MV dec time: 11.0 mmHg 115.7 cm/sec MV E/A: 1.3 0.25 sec PA V2 max: PI end-d snow: TR max snow: 106.9 cm/sec 87.4 cm/sec 132.5 cm/sec PA max PG: TR max P.6 mmHg 7.0 mmHg Left Ventricle The left ventricle is grossly normal size. There is borderline concentric left ventricular hypertrophy. The left ventricular ejection fraction is within normal limits. Doppler measurements suggest impaired left ventricular relaxation, which is associated with grade I/IV or mild diastolic dysfunction. Wall motion cannot be accurately commented on, but no definite regional wall motion abnormalities noted. Right Ventricle The right ventricle is grossly normal size. There is normal right ventricular wall thickness. The right ventricular systolic function is normal. Atria The right atrium is normal in size. The left atrium is borderline dilated. Interarterial septum not well visualized and not well dopplered. Cannot comment on ASD/PFO presence. Mitral Valve The mitral valve leaflets are sclerotic, but show no functional abnormalities. There is no mitral valve stenosis. There is a trace amount of mitral regurgitation. Aortic Valve The aortic valve is grossly normal. There is no aortic valve stenosis. No aortic regurgitation is present. Tricuspid Valve The tricuspid valve is not well visualized, but is grossly normal. There is no tricuspid stenosis. There is a trace or physiologic amount of tricuspid regurgitation. Pulmonic Valve The pulmonic valve is not well visualized. Great Vessels The aortic root is not well visualized but is probably normal size. The inferior vena cava appeared normal and decreased > 50% with respiration (RAP 5-10 mmHg). Effusions There is no pericardial effusion. Incidental Findings No definite cardiac source of CVA/TIA noted on this particular trans- thoracic study. Consider FARZANA if clinically indicated. May consider mobile cardiac telemetry monitoring (MCT) for ruling out transient AFIB. : MARU SUE > Gerson Perry
== END 2017-10-28 17:42 | disposition home or self-care (01) | DRG 69 ==
LOC: ER 10:33 → EH 16:41 → OBSVTOIN 16:41 → 3S 21:17
PROVIDERS: ADMIT Internal Medicine; ATTEND Internal Medicine
DX: G45.9 Transient cerebral ischemic attack, unspecified (principal); N30.01 Acute cystitis with hematuria; R20.0 Anesthesia of skin; H53.8 Other visual disturbances; G43.809 Other migraine, not intractable, without status migrainosus; R29.810 Facial weakness; J45.909 Unspecified asthma, uncomplicated; Z88.6 Allergy status to analgesic agent; Z80.9 Family history of malignant neoplasm, unspecified; Z82.49 Family history of ischemic heart disease and other diseases of the circulatory system
CPT/HCPCS: 36415; 70450; 70551; 71045; 80053; 81001; 82550; 82553; 84484; 85025; 85610; 85730; 87086; 93005; 93010; 93306; 93880; 96361; 96374; 96375; 99285; J0780; J1650; J1885; J7030; J8499

== ENCOUNTER 2018-07-11 09:04 | Emergency (ER) | payer SELFPAY ==
[2018-07-11 09:21] VITALS: BP 139/85
[2018-07-11] MEDS ORDERED: HYDROCODONE/ACETAMINOPHEN 5-325 MG TABLET PO ONE (09:50)
[2018-07-11] MEDS ORDERED: PENICILLIN V POTASSIUM 500 MG TABLET PO ONE (09:50)
[2018-07-11] MEDS ORDERED: IBUPROFEN 800 MG TABLET PO ONE (09:50)
--- NOTE | 2018-07-11 09:52 | ER Document Report ---
HPI - HPI Patient complains to provider of: Dental pain Time Seen by Provider: 07/11/18 09:43 Onset/Duration: Persistent Quality of pain: Achy Pain Level: 5 Context: Patient complains of dental pain to right lower jaw for the past 2 weeks. Patient denies any facial swelling or fever. Associated Symptoms: denies: Fever Exacerbated by: Denies Relieved by: Denies Similar symptoms previously: Yes Recently seen / treated by doctor: No - ROS ROS below otherwise negative: Yes Systems Reviewed and Negative: Yes All other systems reviewed and negative - CONSTITUTIONAL Constitutional: DENIES: Fever, Chills - EENT Notes: Dental pain - RESPIRATORY Respiratory: DENIES: Trouble Breathing, Coughing - GASTROINTESTINAL Gastrointestinal: DENIES: Nausea, Patient vomiting - REPRODUCTIVE Reproductive: DENIES: : - MUSCULOSKELETAL Musculoskeletal: DENIES: Back Pain, Neck Pain - DERM Skin Color: Normal Skin Problems: None Past Medical History - General Information source: Patient - Social History Smoking Status: Never Smoker Frequency of alcohol use: None Drug Abuse: None Occupation: Direct care Family History: Reviewed & Not Pertinent Pulmonary Medical History: Reports: Hx Asthma Neurological Medical History: Reports: Hx Migraine Renal/ Medical History: Denies: Hx Peritoneal Dialysis Psychiatric Medical History: Denies: Hx Depression Past Surgical History: Reports: Hx Genitourinary Surgery, Hx Tubal Ligation - Immunizations Immunizations up to date: Yes Hx Diphtheria, Pertussis, Tetanus Vaccination: Yes Vertical Provider Document - CONSTITUTIONAL Agree With Documented VS: Yes Exam Limitations: No Limitations General Appearance: WD/WN, No Apparent Distress - INFECTION CONTROL TRAVEL OUTSIDE OF THE [place] IN LAST 30 DAYS: No - HEENT HEENT: Atraumatic, Normocephalic. negative: Pharyngeal Exudate, Pharyngeal Tenderness, Pharyngeal Erythema Mouth Diagram: 1 - Dental decay, fracture, no gingival abscess, no trismus, no sublingual or submental swelling - NECK Neck: Normal Inspection, Supple. negative: Lymphadenopathy-Left, Lymphadenopathy-Right - RESPIRATORY Respiratory: Breath Sounds Normal, No Respiratory Distress - CARDIOVASCULAR Cardiovascular: Regular Rate, Regular Rhythm - BACK Back: Normal Inspection - MUSCULOSKELETAL/EXTREMETIES Musculoskeletal/Extremeties: MAEW - NEURO Level of Consciousness: Awake, Alert, Appropriate Motor/Sensory: No Motor Deficit - DERM Integumentary: Warm, Dry, No Rash Course - Vital Signs Vital signs: Temp Pulse Resp BP Pulse Ox 98.4 F 72 16 139/85 H 99 07/11/18 09:20 07/11/18 09:20 07/11/18 09:20 07/11/18 09:20 07/11/18 09:20 Discharge - Discharge Clinical Impression: Toothache Condition: Stable Disposition: HOME, SELF-CARE Instructions: Dentist, Penicillin V K ([facility]), Toothache ([facility]) Additional Instructions: Return immediately for any new or worsening symptoms Followup with a dental care provider, call tomorrow to make a followup appointment Prescriptions: Naproxen [Naprosyn 250 Nmg Tablet] 1 tab PO BID #14 tablet Penicillin V Potassium [Penicillin Vk 500 mg Tablet] 500 mg PO BID #20 tablet Forms: Return to Work Referrals: [facility] [Provider Group] - Follow up as needed
== END 2018-07-11 10:06 | disposition home or self-care (01) ==
LOC: ER 09:04
DX: K08.9 Disorder of teeth and supporting structures, unspecified (principal); Z98.51 Tubal ligation status
CPT/HCPCS: 99282